=== PATIENT | male | born 1930 | race Caucasian/White ===

== ENCOUNTER 2016-06-25 09:10 | Emergency (ER) | payer MEDICARE, BC ==
[~2016-06-25] VITALS: Ht 180.3 cm; Wt 95.2 kg
[2016-06-25 09:10] VITALS: Ht 180.3 cm; Wt 95.2 kg
[~2016-06-25 09:10] MED LIST: ACET325T51 PO; ALLO100T51 PO; AMIO200T2 PO; AMLO5TAB PO; CHOL200024 PO; DOCU-132 PO; GLIP-72 PO; LOSA25TA34 PO; MAGN30OR PO; MAGN400C PO; METO50TA5 PO; POTA20TA87 PO; SIME80TA12 PO; TAMS0.4C46 PO; TORS10TA17 PO
--- OUTSIDE RECORDS SUMMARY | 2016-06-25 09:16 | XMS REPORT | Continuity of Care Document ---
Author Author [facility] Organization [facility] Address Unknown Phone Unavailable Support Name Relationship Address Phone IDALMIS FARRIS DO Caregiver [address] [place] [address] Unavailable MAGDA RIZO MD Caregiver [address] [place] [address] [place] [address] Unavailable RAGHAV ROTHMAN Next Of Kin [address] [place], [place] [id number] Insurance Providers Guarantor Bharath Rothman Address [address] [facility] [address] [place] [address] Email DENIED 04-30-16 Payer [employer] Select Plan 65 Policy Number [id number] Subscriber's Name AlexeiBharath Sanches Relationship 18 Self Group Number [id number] Payer Medicare Policy Number [id number] Subscriber's Name Alexei,Cascade L Relationship 18 Self Advance Directives Directive Response Recorded Date/Time Ordered Resuscitation Status Full Code 04/27/16 3:54pm Resuscitation Documents on File No 04/30/16 6:35am DPOA for Healthcare Only Yes 04/30/16 6:35am Living Will Yes 04/30/16 6:35am Problems Past Problems Medical Problem Onset Date Abdominal bloating Unknown Pulmonary edema Unknown Medications Current Home Medications Medication Dose Units Route Directions Days Qty Instructions Start Date Acetaminophen 325 Mg Tablet 325 Mg Oral Four Times Daily as needed for Pain 04/06/16 Allopurinol 100 Mg Tablet 3 Tab Oral Daily 09/05/12 Amiodarone Hcl 200 Mg Tablet 200 Mg Oral Bedtime 04/06/16 Amlodipine Besylate (Norvasc) 5 Mg Tablet 5 Mg Oral Twice A Day 09/05/12 Cholecalciferol (Vitamin D3) (Vitamin D) 2,000 Unit Tablet 1 Tab Oral Daily 04/27/16 Docusate Sodium (Dulcolax Stool Softener) 100 Mg Capsule 1 Cap Oral Daily as needed for Constipation 04/27/16 Glipizide 5 Mg Tablet 5 Mg Oral Twice A Day 09/05/12 Losartan Potassium 25 Mg Tablet 25 Mg Oral Daily 04/06/16 Magnesium Hydroxide/Al Hydrox (Mag-Al Liquid) 30 Ml Suspension 30 Ml Oral Every 3-4 Hours as needed for Indigestion 04/27/16 Magnesium Oxide (Magnesium) 400 Mg Capsule 1 Cap Oral Daily 30 Capsule 04/27/16 Metoprolol Tartrate 50 Mg Tablet 50 Mg Oral Daily 04/06/16 Potassium Chloride 20 Meq Tab.er.prt 1 Tab Oral Daily 30 04/27/16 Simethicone 80 Mg Tab.chew 80 Mg Oral Before Meals And At Bedtime 20 Tablet Chew 1 tablet, 4 times a day (with each meal and at bedtime). 04/06/16 Tamsulosin Hcl 0.4 Mg Cap.er.24h 0.4 Mg Oral Bedtime 09/05/12 Torsemide 10 Mg Tablet 10 Mg Oral Daily 04/06/16 Social History Social History Problem Response Recorded Date/Time Onset Date Status Reason for Hospitalization COLONOSCOPY 04/30/2016 9:22am Not Applicable Not Applicable Chewing Tobacco Status No 09/05/2012 2:45pm Not Applicable Not Applicable Hx Substance Use No 04/30/2016 6:17am Not Applicable Not Applicable Hx Alcohol Use No 04/06/2016 1:12pm Not Applicable Not Applicable Has the pt used tobacco in the last 12 months No 04/30/2016 6:17am Not Applicable Not Applicable Query Response Start Date Stop Date Smoking Status Former smoker Hospital Discharge Instructions Instructions: Care Instructions: I was in the hospital because (patient own words): COLONOSCOPY Discharge Diet: You may resume your usual diet. Discharge Activity: You may resume your usual activity. Follow Up Appointments: No specific follow-up appointment with Dr. Rizo is necessary. You can call his office for any questions or concerns ([phone]). Dr. Rizo's office will notify you of your results in about 2 weeks. Pending Lab / Results: Will be notified Patient Instructions: Do not drive, operate machinery, drink alcohol, or sign important papers for 24 hours. Expected Signs/Symptoms: You may have some gas discomfort. Notify Physician If: Contact Dr. Rizo if you have a fever over 101 degrees, severe abdominal pain, or severe rectal bleeding. During Business Hours:: *In the event of an emergency, call 911 or seek medical care at the nearest emergency room.* During office hours, call Dr. Rizo's office at [phone]. After Business Hours:: After hours, please call [facility] at [phone] and have the heel nailing machine operator page Dr. Rizo or the covering surgeon. Pain Management/Treatment: You should not have significant pain following the procedure. Wound/Incision Care: No wound care required. Condition at time of discharge: Good Plan of Care Discharge Date 04/30/16 10:43am Prescriptions See Medication Section Functional Status No functional status results. Allergies, Adverse Reactions, Alerts Allergen Type Severity Reaction Status Last Updated Penicillin Allergy Active 09/05/12 Immunizations Query Response on File Recorded Date/Time Hx Influenza Vaccination No 09/05/12 2:45pm Hx Pneumococcal Vaccination No 09/05/12 2:45pm Hx Influenza Vaccination No 09/05/12 2:45pm Influenza Vaccine Hx 12/3104/06/16 1:12pm Vital Signs Acute Vital Signs Vital Response Date/Time Temperature (Fahrenheit) 96.8 deg F (96.8 - 99.1) 04/30/2016 8:57am Temperature (Calculated Celsius) 36.49425 degrees C (36.0 - 37.3) 04/30/2016 8:57am Temperature Source Temporal 04/30/2016 8:57am Pulse Rate (adult) 46 bpm (60 - 100) 04/30/2016 10:30am Respiratory Rate 19 breaths/min (10 - 20) 04/30/2016 10:30am O2 Sat by Pulse Oximetry 98 % (90 - 100) 04/30/2016 10:30am Oxygen Delivery Method Nasal Cannula 04/30/2016 10:30am Oxygen Flow Rate 3.00 L/min 04/30/2016 10:30am Blood Pressure 142/60 mm Hg 04/30/2016 10:30am Blood Pressure Source Automatic Cuff 04/30/2016 10:30am Height (Feet) 5 feet 04/30/2016 5:58am Height (Inches) 11.00 inches 04/30/2016 5:58am Weight (Kilograms) 100.700 kg 04/30/2016 5:58am Body Mass Index (BMI) 31.0 04/30/2016 5:58am Results Laboratory Results Test Name Result Units Flags Reference Collection Date/Time Result Date/ Time Comments White Blood Count 14.4 T/MM3 H 4.5-11.0 04/06/2016 1:13pm 04/06/2016 1: 18pm Red Blood Count 3.34 M/MM3 L 4.50-5.90 04/06/2016 1:04/06/2016 1: 18pm Hemoglobin 9.7 GM/DL L 13.5-17.5 04/06/2016 1:04/06/2016 1:18pm Hematocrit 30.1 % L 41-53 04/06/2016 1:04/06/2016 1:18pm Mean Corpuscular Volume 90.1 UM3 80-100 04/06/2016 1:04/06/2016 1: 18pm Mean Corpuscular Hemoglobin 29.0 UUG 26-34 04/06/2016 1:pm 2016 1:18pm Mean Corpuscular Hemoglobin Concent 32.2 GM/DL 31-37 04/06/2016 1:04/06/2016 1:18pm RDW Standard Deviation 46.4 FL 36.9-50.2 04/06/2016 1:04/06/2016 1 :18pm Platelet Count 212 T/MM3 130-400 04/06/2016 1:04/06/2016 1:18pm Mean Platelet Volume 10.8 UM3 9.4-12.4 04/06/2016 1:04/06/2016 1: 18pm Neutrophils (%) (Auto) 84.9 % H 33-66 04/06/2016 1:04/06/2016 1: 18pm Lymphocytes (%) (Auto) 6.8 % L 23-45 04/06/2016 1:04/06/2016 1: 18pm Monocytes (%) (Auto) 7.2 % 0-9.0 04/06/2016 1:04/06/2016 1:18pm Eosinophils (%) (Auto) 0.6 % 0-4 04/06/2016 1:04/06/2016 1:18pm Basophils (%) (Auto) 0.2 % 0-2 04/06/2016 1:04/06/2016 1:18pm Immature Granulocyte % (Auto) 0.3 % 0.0-0.5 04/06/2016 1:2016 1:18pm Absolute Neutrophils (auto) 12.2 T/MM3 H 1.8-7.7 04/06/2016 1:04/06 1:18pm Absolute Lymphocytes (auto) 1.0 T/MM3 1-4.8 04/06/2016 1:2016 1:18pm Absolute Monocytes (auto) 1.0 T/MM3 H 0-0.8 04/06/2016 1:2016 1:18pm Absolute Eosinophils (auto) 0.1 T/MM3 0-0.5 04/06/2016 1:2016 1:18pm Absolute Basophils (auto) 0.0 T/MM3 0-0.2 04/06/2016 1:04/06/2016 1:18pm Absolute Immature Granulocyte (auto 0.04 T/MM3 H 0.00-0.03 04/06/2016 1: 04/06/2016 1:18pm Icterus Index < 2 0-7 04/06/2016 1:04/06/2016 1:37pm Chemistry Specimen Hemolysis < 15 0-25 04/06/2016 1:04/06/2016 1 :37pm 0-25: Specimen Exhibited No Hemolysis. Turbidity < 20 0-20 04/06/2016 1:04/06/2016 1:37pm Sodium Level 143 MEQ/L 134-144 04/06/2016 1:04/06/2016 1:37pm Potassium Level 4.2 MEQ/L 3.6-5 04/06/2016 1:04/06/2016 1:37pm Chloride Level 109 MEQ/L H 98-107 04/06/2016 1:04/06/2016 1:37pm Carbon Dioxide Level 24 MEQ/L 22-30 04/06/2016 1:04/06/2016 1: 37pm Anion Gap 10 MEQ/L 5-15 04/06/2016 1:04/06/2016 1:37pm Blood Urea Nitrogen 30.0 MG/DL H 9-20 04/06/2016 1:04/06/2016 1: 37pm Creatinine 1.7 MG/DL H 0.8-1.5 04/06/2016 1:13pm 04/06/2016 1:37pm BUN/Creatinine Ratio 18 RATIO 6-26 04/06/2016 1:13pm 04/06/2016 1:37pm Glomerular Filtration Rate Calc 39 04/06/2016 1:13pm 04/06/2016 1: 37pm Glucose Level 168 MG/DL H 75-110 04/06/2016 1:1304/06/2016 1:37pm Calculated Osmolality 285 MOSM/KG H 261-280 04/06/2016 1:132016 1:37pm Calcium Level 9.1 MG/DL 8.4-10.2 04/06/2016 1:13pm 04/06/2016 1:37pm Total Bilirubin 1.10 MG/DL 0.20-1.30 04/06/2016 1:13pm 04/06/2016 1: 37pm Alkaline Phosphatase 83 U/L 38-126 04/06/2016 1:1304/06/2016 1:37pm Total Protein 6.5 G/DL 6.3-8.2 04/06/2016 1:13pm 04/06/2016 1:37pm Albumin 3.8 G/DL 3.5-5.0 04/06/2016 1:13pm 04/06/2016 1:37pm Globulin 2.7 G/DL 2.4-3.6 04/06/2016 1:13pm 04/06/2016 1:37pm Albumin/Globulin Ratio 1.4 RATIO 1.1-2.2 04/06/2016 1:04/06/2016 1 :37pm Aspartate Amino Transf (AST/SGOT) 19 U/L 17-59 04/06/2016 1:13pm 2016 1:37pm Alanine Aminotransferase (ALT/SGPT) 34 U/L 21-72 04/06/2016 1:13pm 1:37pm ZP-Rru-A-Type Natriuretic Peptide 2670 PG/ML H 0-175 04/06/2016 1:12pm 04/06/2016 2:48pm Rule in cut points: <50 years old=450; 50-75 years old=900; >75 years old=1800; When utilizing ProBNP rule-in cut points, adjustment for impaired renal function is typically not required. Lipase 63 U/L 23-300 04/06/2016 1:13pm 04/06/2016 2:07pm Urine Collection Type CLEANCATCH-MIDSTREAM 04/06/2016 1:17pm 2016 1:47pm Urine Color YELLOW YELLOW 04/06/2016 1:17pm 04/06/2016 1:47pm Urine Turbidity CLEAR CLEAR 04/06/2016 1:17pm 04/06/2016 1:47pm Urine Specific [place] 1.010 L 1.015-1.025 04/06/2016 1:17pm 2016 1:47pm Urine pH 5.5 5.0-8.0 04/06/2016 1:17pm 04/06/2016 1:47pm Urine Leukocyte Esterase NEGATIVE NEGATIVE 04/06/2016 1:17pm 2016 1:47pm Urine Nitrite NEGATIVE NEGATIVE 04/06/2016 1:17pm 04/06/2016 1:47pm Urine Protein NEGATIVE NEGATIVE 04/06/2016 1:17pm 04/06/2016 1:47pm Urine Glucose (UA) NEGATIVE NEGATIVE 04/06/2016 1:17pm 04/06/2016 1: 47pm Urine Ketones NEGATIVE NEGATIVE 04/06/2016 1:17pm 04/06/2016 1:47pm Urine Urobilinogen 0.2 EU/DL NORMAL 04/06/2016 1:17pm 04/06/2016 1: 47pm Urine Bilirubin NEGATIVE NEGATIVE 04/06/2016 1:17pm 04/06/2016 1: 47pm Urine Blood NEGATIVE NEGATIVE 04/06/2016 1:17pm 04/06/2016 1:47pm Urinalysis Comment MICROSCOPIC NOT IND. 04/06/2016 1:17pm 2016 1:47pm Glucometer 138 mg/dL H 75-110 04/30/2016 5:54am 04/30/2016 5:57am Procedures Procedure Status Date Provider(s) Breathing capacity test Completed 03/15/16 Pulm funct tst plethysmograp Completed 03/15/16 Co/membane diffuse capacity Completed 03/15/16 Chest x-ray 2vw frontal&latl Completed 04/06/16 Ct abd & pelv w/contrast Completed 04/06/16 Comprehen metabolic panel Completed 04/06/16 Urinalysis auto w/o scope Completed 04/06/16 Assay of lipase Completed 04/06/16 Assay of natriuretic peptide Completed 04/06/16 Complete cbc w/auto diff wbc Completed 04/06/16 Ther/proph/diag inj iv push Completed 04/06/16 Emergency dept visit Completed 04/06/16"INJECTION, FUROSEMIDE, UP TO 20 MG" Completed 04/06/16"INFUSION, NORMAL SALINE SOLUTION , 250 CC" Completed 04/06/16"LOW OSMOLAR CONTRAST MATERIAL, 300-399 MG/ML IODINE C Completed "LOW OSMOLAR CONTRAST MATERIAL, 300-399 MG/ML IODINE C Completed 003"LOW OSMOLAR CONTRAST MATERIAL, 300-399 MG/ML IODINE C Completed "LOW OSMOLAR CONTRAST MATERIAL, 300-399 MG/ML IODINE C Completed Colonoscopy with polypectomy and biopsy Completed 04/30/16 MAGDA RIZO MD Encounters Encounter Location Arrival/Admit Date Discharge/Depart Date Attending Provider Departed [facility] 04/30/16 5:41am 04/30/16 10 :43am MAGDA RIZO MD Departed Emergency Room [facility] 04/06/16 12:28pm 04/06/16 4: 50pm ROSEANNA CANALES MD Registered Clinic [facility] 03/15/16 8:49am IDALMIS FARRIS DO
--- OUTSIDE RECORDS SUMMARY | 2016-06-25 09:16 | XMS REPORT | Referral Summary ---
Author Author [facility] Organization [facility] Address Unknown Phone Unavailable Care Team Providers Care Securities Settlement Processor Name Role Phone Bryant Zhang Primary Care Physician [phone] Encounter EDER [id number] Date(s): 02/18/16 - 02/19/16 [facility] [address] [place] [address] Discharge Disposition: 01-Home or Self Care Attending Physician: Britton Ott MD Admitting Physician: Britton Ott MD Vital Signs Most recent to 1 oldest [Reference Range]: Temperature Oral 36.6 degC [35.8-37.3 degC] (02/19/16 8:38 AM) Peripheral Pulse 54 bpm Rate [60-100 bpm] *LOW* (02/19/16 8:45 AM) Heart Rate Monitored 53 bpm [60-100 bpm] *LOW* (02/19/16 8:38 AM) Respiratory Rate 16 br/min [14-20 br/min] (02/19/16 4:40 AM) Blood Pressure 155/63 mmHg [90-140/60-90 mmHg] *HI* (02/19/16 8:38 AM) Mean Arterial 81 mmHg Pressure, Cuff (02/18/16 6:30 PM) SpO2 94 % (02/19/16 8:38 AM) Remote Telemetry Ongoing (02/19/16 9:01 AM) Problem List Condition Effective Dates Status Health Status Informant Cardiac Active disorder(Confirmed)1 Ineffective airway Active clearance(Confirmed) 2 Obesity(Confirmed) Active patient Tobacco Active patient user(Confirmed) 1Problem added automatically by system based on initiation of Cardiac Output/ Ineffective Cardiac Perfusion Plan of Care 2Problem added automatically by system based on initiation of Ineffective Airway Clearance Plan of Care Allergies, Adverse Reactions, Alerts Substance Reaction Severity Status penicillin Urticaria (hives) Active Medications allopurinol 100 mg oral tablet 200 mg 2 tabs, Oral, Daily, 0 Refill(s) Start Date: 02/18/16 Status: Ordered amiodarone 200 mg oral tablet 200 mg 1 tabs, Oral, qPM, 0 Refill(s) Start Date: 02/18/16 Status: Ordered amLODIPine 5 mg oral tablet 5 mg 1 tabs, Oral, BID, 0 Refill(s) Start Date: 02/18/16 Status: Ordered cholecalciferol 2,000 Intl_Units, Oral, Daily, 0 Refill(s) Start Date: 02/18/16 Status: Ordered glipiZIDE 5 mg oral tablet 5 mg 1 tabs, Oral, BID, 0 Refill(s) Start Date: 02/18/16 Status: Ordered losartan 25 mg oral tablet 25 mg 1 tabs, Oral, Daily, 0 Refill(s) Start Date: 02/18/16 Status: Ordered magnesium oxide 400 mg, Oral, qPM, 0 Refill(s) Start Date: 02/18/16 Status: Ordered Metoprolol Tartrate 50 mg oral tablet 50 mg 1 tabs, Oral, BID, 0 Refill(s) Start Date: 02/18/16 Status: Ordered potassium chloride 20 mEq oral tablet, extended release 20 mEq 1 tabs, Oral, Daily, # 30 tabs, 0 Refill(s), Pharmacy: [facility], 1 tabs Oral Daily Start Date: 02/19/16 Status: Ordered torsemide 10 mg oral tablet 5 mg 0.5 tabs, Oral, Daily, 0 Refill(s) Start Date: 02/18/16 Status: Ordered Results Hematology Most recent to 1 oldest [Reference Range]: WBC [4.8-10.8 9.8 10*3/uL 10*3/uL] (02/19/16 5:49 AM) RBC [4.60-6.20] 3.53 *LOW* (02/19/16 5:49 AM) Hgb [14.0-18.0 10.4 gm/dL gm/dL] *LOW* (02/19/16 5:49 AM) Hct [42.0-52.0 %] 31.3 % *LOW* (02/19/16 5:49 AM) MCV [82.0-99.0 fL] 88.7 fL (02/19/16 5:49 AM) MCH [27.0-32.0 pg] 29.5 pg (02/19/16 5:49 AM) MCHC [32.0-36.0 33.2 gm/dL gm/dL] (02/19/16 5:49 AM) RDW [11.5-14.5 %] 14.8 % *HI* (02/19/16 5:49 AM) Platelet [150-400 168 10*3/uL 10*3/uL] (02/19/16 5:49 AM) MPV [9.4-12.3 fL] 11.1 fL (02/19/16 5:49 AM) Neutrophils [51-75 81 % %] *HI* (02/18/16 3:03 PM) Lymphocytes [20-46 10 % %] *LOW* (02/18/16 3:03 PM) Monocytes [4-11 %] 9 % (02/18/16 3:03 PM) Eosinophils [0-4 %] 1 % (02/18/16 3:03 PM) Basophils [0-2 %] 0 % (02/18/16 3:03 PM) Neutro Absolute 11.18 10*3 [1.90-7.00 10*3] *HI* (02/18/16 3:03 PM) Lymph Absolute 1.38 10*3 [0.80-3.30 10*3] (02/18/16 3:03 PM) [place] Absolute 1.24 10*3 [0.30-1.00 10*3] *HI* (02/18/16 3:03 PM) Eos Absolute 0.14 10*3 [0.00-0.50 10*3] (02/18/16 3:03 PM) Baso Absolute 0.05 10*3 [0.00-0.20 10*3] (02/18/16 3:03 PM) Toxic Gran Occasional *ABN* (02/18/16 3:03 PM) Nucleated RBC 0.0 /100 WBC Automated [0 /100 (02/18/16 3:03 PM) WBC] Differential Reviewed (02/18/16 3:03 PM) Chemistry Most recent to 1 oldest [Reference Range]: Sodium Lvl [136-144 139 mEq/L mEq/L] (02/19/16 5:49 AM) Potassium Lvl 3.1 mEq/L [3.6-5.1 mEq/L] *LOW* (02/19/16 5:49 AM) Chloride [99-109 106 mEq/L mEq/L] (02/19/16 5:49 AM) CO2 [22-32 mEq/L] 26 mEq/L (02/19/16 5:49 AM) AGAP [3-20] 7 (02/19/16 5:49 AM) BUN [4-20 mg/dL] 23 mg/dL *HI* (02/19/16 5:49 AM) Glucose Lvl [70-100 114 mg/dL mg/dL] *HI* (02/19/16 5:49 AM) Creatinine Lvl 1.55 mg/dL [0.64-1.27 mg/dL] *HI* (02/19/16 5:49 AM) eGFR [>60] 43 1 *ABN* (02/19/16 5:49 AM) Calcium Lvl 8.6 mg/dL [8.6-10.0 mg/dL] (02/19/16 5:49 AM) Albumin Lvl [3.5-4.8 3.0 gm/dL gm/dL] *LOW* (02/19/16 5:49 AM) Total Protein 5.5 gm/dL [6.1-7.9 gm/dL] *LOW* (02/19/16 5:49 AM) Globulin [1.9-4.3 2.5 gm/dL gm/dL] (02/19/16 5:49 AM) ALT [17-63 U/L] 16 U/L *LOW* (02/19/16 5:49 AM) AST [15-41 U/L] 16 U/L (02/19/16 5:49 AM) Alk Phos [26-104 66 U/L U/L] (02/19/16 5:49 AM) Bili Total [0.2-1.2 0.9 mg/dL 2 mg/dL] (02/19/16 5:49 AM) BNP [0-99 pg/mL] 449 pg/mL *HI* (02/19/16 5:49 AM) Troponin [<0.06 <0.05 ng/mL ng/mL] (02/19/16 5:49 AM) Blood Glucose, 115 mg/dL Capillary [70-100 *HI* mg/dL] (02/19/16 5:20 AM) 1Result Comment: Multiply eGFR results by 1.21 for race. 2Result Comment: Naproxen, specifically the metabolite O-desmethylnaproxen, may cause spurious elevation in Total Bilirubin levels. Immunizations No data available for this section Procedures No data available for this section Social History Social History Type Response Smoking Status Former smoker Assessment and Plan No data available for this section
--- OUTSIDE RECORDS SUMMARY | 2016-06-25 09:16 | XMS REPORT | Continuity of Care Document ---
Author Author [facility] Organization [facility] Address Unknown Phone Unavailable Allergies Active Description Code Type Severity Reaction Onset Reported/Identified Relationship to Patient Clinical Status Yes No Known Food Allergies Food Allergy N/A N/A 07/06/2009 Yes Penicillins Drug Allergy N/A Urticaria (hives) 07/06/2009 Medications Problems Date Dx Coded Attending Type Code Diagnosis Diagnosed By 05/13/2013 Eliza Lewis MD) Final 585.3 CKD-STAGE III 05/13/2013 Eliza Lewis MD) Admitting 585.3 CKD-STAGE III Procedures Results Test Result Range CBC - 01/07/12 07:57 MEAN CELL HGB 30.0 pg 27.0-33.0 MEAN CELL HGB CONCENTRATION 34.0 g/dl 32.0-36.0 MEAN CELL VOLUME 88.3 fl 80.0-100.0 RED BLOOD CELL 4.38 m/cumm 4.00-6.00 RED CELL DISTRIBUTION WIDTH 14.6 % 11.0- 15.6 WHITE BLOOD CELL 9.9 k/cumm 5.0-10.0 HEMOGLOBIN 13.1 gm/dL 14.0-18.0 HEMATOCRIT 38.6 % 40.0-54.0 PLATELET COUNT 245 k/cumm 150-450 METABOLIC PANEL, BASIC - 01/07/12 07:57 POTASSIUM 3.9 mmol/L 3.5-5.3 EST GFR (MDRD) 48 mL/min > 59 ANION GAP 9 mmol/L 5-15 EST CrCl (CG) 42 mL/min > 59 GLUCOSE 167 mg/dL 70-99 CALCIUM 9.1 mg/dL 8.5-10.1 BLOOD UREA NITROGEN 21 mg/dL 7-20 CREATININE 1.5 mg/dL 0.8-1.3 SODIUM 142 mmol/L 135-148 CHLORIDE 110 mmol/L 98-110 CARBON DIOXIDE 23 mmol/L 21-32 GLUCOSE (POC) - 01/07/12 08:37 GLUCOSE (POC) 206 mg/dL 70-99 URINALYSIS, ROUTINE - 01/07/12 08:50 UA LEUKOCYTE ESTERASE DIPSTICK NEGATIVE NEGATIVE UA NITRITE DIPSTICK NEGATIVE NEGATIVE UA PROTEIN DIPSTICK NEGATIVE NEGATIVE UA GLUCOSE DIPSTICK NEGATIVE NEGATIVE UA KETONE DIPSTICK NEGATIVE NEGATIVE UA UROBILINOGEN DIPSTICK NORMAL NORMAL UA BILIRUBIN DIPSTICK NEGATIVE NEGATIVE UA BLOOD DIPSTICK NEGATIVE NEGATIVE UA VOLUME FOR EXAM 12.0 mL (12mL STD) UA SPECIFIC GRAVITY 1.019 1.015-1.025 UR PH 5.0 5.0-7.0 GLUCOSE (POC) - 01/07/12 12:13 GLUCOSE (POC) 104 mg/dL PROTHROMBIN TIME WITH INR - 01/07/12 12:29 INTERNATIONAL NORMAL RATIO 1.2 0.9-1.1 PROTHROMBIN TIME 12.4 sec 9.3-12.2 GLUCOSE (POC) - 01/07/12 14:29 GLUCOSE (POC) 197 mg/dL MRSA SURVEILLANCE SCREEN - 01/07/12 16:35 Uncategorized GLUCOSE (POC) - 01/07/12 20:16 GLUCOSE (POC) 155 mg/dL CBC - 01/08/12 04:10 MEAN CELL HGB 30.5 pg 27.0-33.0 MEAN CELL HGB CONCENTRATION 34.5 g/dl 32.0-36.0 MEAN CELL VOLUME 88.4 fl 80.0-100.0 RED BLOOD CELL 3.26 m/cumm 4.00-6.00 RED CELL DISTRIBUTION WIDTH 14.1 % 11.0- 15.6 WHITE BLOOD CELL 9.9 k/cumm 5.0-10.0 HEMOGLOBIN 9.9 gm/dL 14.0-18.0 HEMATOCRIT 28.8 % 40.0-54.0 PLATELET COUNT 175 k/cumm 150-450 METABOLIC PANEL, COMPREHN - 01/08/12 04:10 POTASSIUM 3.8 mmol/L 3.5-5.3 EST GFR (MDRD) 45 mL/min > 59 ANION GAP 9 mmol/L 5-15 EST CrCl (CG) 39 mL/min > 59 GLUCOSE 118 mg/dL CALCIUM 8.0 mg/dL 8.5-10.1 BLOOD UREA NITROGEN 22 mg/dL 7-20 CREATININE 1.6 mg/dL 0.8-1.3 SODIUM 143 mmol/L 135-148 CHLORIDE 110 mmol/L 98-110 AST/SGOT 30 Units/L 10-37 ALT/SGPT 17 Units/L < 66 CARBON DIOXIDE 24 mmol/L 21-32 TOTAL PROTEIN 5.2 gm/dL 6.4-8.2 ALBUMIN 2.8 gm/dL 3.4-5.0 BILI TOTAL 0.4 mg/dL 0.0-1.0 ALKALINE PHOSPHATASE TOTAL 64 Units/L 50- 136 GLUCOSE (POC) - 01/08/12 06:02 GLUCOSE (POC) 142 mg/dL 70-99 GLUCOSE (POC) - 01/08/12 11:06 GLUCOSE (POC) 151 mg/dL 70-99 GLUCOSE (POC) - 01/08/12 14:23 GLUCOSE (POC) 136 mg/dL 70-99 GLUCOSE (POC) - 01/08/12 20:18 GLUCOSE (POC) 127 mg/dL 70-99 METABOLIC PANEL, BASIC - 01/09/12 04:45 POTASSIUM 3.7 mmol/L 3.5-5.3 EST GFR (MDRD) 45 mL/min > 59 ANION GAP 8 mmol/L 5-15 EST CrCl (CG) 39 mL/min > 59 GLUCOSE 136 mg/dL 70-99 CALCIUM 8.2 mg/dL 8.5-10.1 BLOOD UREA NITROGEN 20 mg/dL 7-20 CREATININE 1.6 mg/dL 0.8-1.3 SODIUM 144 mmol/L 135-148 CHLORIDE 111 mmol/L 98-110 CARBON DIOXIDE 25 mmol/L 21-32 CBC - 01/09/12 04:45 MEAN CELL HGB 30.5 pg 27.0-33.0 MEAN CELL HGB CONCENTRATION 34.3 g/dl 32.0-36.0 MEAN CELL VOLUME 88.8 fl 80.0-100.0 RED BLOOD CELL 3.06 m/cumm 4.00-6.00 RED CELL DISTRIBUTION WIDTH 14.3 % 11.0- 15.6 WHITE BLOOD CELL 9.1 k/cumm 5.0-10.0 HEMOGLOBIN 9.3 gm/dL 14.0-18.0 HEMATOCRIT 27.2 % 40.0-54.0 PLATELET COUNT 175 k/cumm 150-450 GLUCOSE (POC) - 01/09/12 05:51 GLUCOSE (POC) 133 mg/dL 70-99 GLUCOSE (POC) - 01/09/12 10:12 GLUCOSE (POC) 171 mg/dL 70-99 GLUCOSE (POC) - 01/09/12 14:19 GLUCOSE (POC) 205 mg/dL 70-99 Encounters ACCT No. Visit Date/Time Discharge Status Pt. Type Provider Facility Loc./Unit Complaint [id number] 01/07/2012 07:59:00 2011 16:43:00 [id number]
[2016-06-25] MEDS ORDERED: POTA99TA21 PO (09:41)
[2016-06-25] MEDS ORDERED: MAGN100T PO (09:41)
--- NOTE | 2016-06-25 09:45 | ERPDOC ---
Departure Disposition Decision Date: Jun 25, 2016 Disposition Decision Time: 12:18 Disposition: 01 DISCHARGED HOME, SELF-CARE Impression Impression Impression: Primary Impression: Rotavirus enteritis Severity: Moderate Condition: Stable Seen By: Physician only Referrals: IDALMIS FARRIS DO (Family) Patient Instructions: Acute Diarrhea (ED) Problems/Meds/Labs Reviewed?: Yes Medications reviewed and manag: Yes Additional Instructions: Recommend Imodium [id number] as directed on the box, plenty of fluids. Follow-up with primary medical physician if not improved by midweek Wash hands frequently with soap and water, and kitchen and bathroom countertops with Clorox wipes Follow up care ordered?: Yes Mental Status: Alert, Oriented HPI - Abdominal Pain General Chief Complaint: Nausea,Vomiting,Diarrhea Stated Complaint: SEVERE DIARRHEA Time Seen by Provider: 09:45 HPI - Abdominal Pain Allergies: Coded Allergies: Penicillins (Verified Allergy, 09/05/12) Past History Past Medical History Metabolic: cancer Cardiac: other Surgical History General: gallbladder Cardiac: valve replacement Reproductive/: other Vaccines Hx Influenza Vaccination: No Hx Pneumococcal Vaccination: No Social History Does patient use chewing tobac: No Second Hand Exposure: No Substance Use Type: does not use Substance last used: unknown Alcohol Intake: none Last Drink: prior to arrival, unknown Physical Exam General Vitals and Pain First Documented Vital Signs Date Time Temp Pulse Resp B/P Pulse Ox O2 Delivery O2 Flow Rate FiO2 06/25/16 09:10 98.4 66 18 164/73 95 Room Air Weight: Kilograms: 95.200 Height (feet): 5 Height (inches): 11.00 Triage Pain Scale: Progress Results/Orders Orders Procedure Category Date Status Time Orthostatic Bp/Pulse EDM 06/25/16 Transmitted 09:49 Iv Lock (Ed Only) EDM 06/25/16 Transmitted 09:49 Cbc W/Auto LAB 06/25/16 Complete Diff-Reflex Manual 09:49 Cmp - Comprehensive LAB 06/25/16 Complete Metabolic 09:49 Lipase LAB 06/25/16 Complete 09:49 Ua, Dip Wreflex LAB 06/25/16 Complete [employer] 09:49 Normal Saline (Normal PHA 06/25/16 Complete Saline Iv) 10:00 Gi Panel, Pcr, Stool LAB 06/25/16 Complete 10:19 Lab Results Laboratory Tests Test 06/25/16 10:02 06/25/16 10:19 White Blood Count 12.1T/MM3 Red Blood Count 4.54M/MM3 Hemoglobin 12.7GM/DL Hematocrit 38.5% Mean Corpuscular Volume 84.8UM3 Mean Corpuscular Hemoglobin 28.0UUG Mean Corpuscular Hemoglobin Concent 33.0GM/DL RDW Standard Deviation 48.8FL Platelet Count 181T/MM3 Mean Platelet Volume 10.4UM3 Immature Granulocyte % (Auto) % Neutrophils (%) (Auto) % Lymphocytes (%) (Auto) % Monocytes (%) (Auto) % Eosinophils (%) (Auto) % Basophils (%) (Auto) % Absolute Immature Granulocyte (auto T/MM3 Absolute Neutrophils (auto) T/MM3 Absolute Lymphocytes (auto) T/MM3 Absolute Monocytes (auto) T/MM3 Absolute Eosinophils (auto) T/MM3 Absolute Basophils (auto) T/MM3 Neutrophils % (Manual) 87.0% Lymphocytes % (Manual) 2.0% Monocytes % (Manual) 10.0% Eosinophils % (Manual) 1.0% Absolute Neutrophils (Manual) 10.5T/MM3 Lymphocytes # (Manual) 0.2T/MM3 Monocytes # (Manual) 1.2T/MM3 Eosinophils # (Manual) 0.1T/MM3 Poikilocytosis 1+ Tear Drop Cells 1+ Helmet Cells 1+ Red Cell Morphology Comment Abnormal Urine Collection Type Voided-not cc-midstr Urine Color Yellow Urine Turbidity Clear Urine pH 5.5 Urine Specific [place] 1.015 Urine Protein Trace Urine Glucose (UA) Negative Urine Ketones Negative Urine Blood Trace-intact Urine Nitrite Negative Urine Bilirubin Negative Urine Urobilinogen 0.2EU/DL Urine Leukocyte Esterase Negative Urinalysis Comment Microscopic not ind. Turbidity < 20 Sodium Level 148MEQ/L Potassium Level 3.8MEQ/L Chloride Level 109MEQ/L Carbon Dioxide Level 23MEQ/L Anion Gap 16MEQ/L Blood Urea Nitrogen 26.0MG/DL Creatinine 1.6MG/DL Glomerular Filtration Rate Calc 41 BUN/Creatinine Ratio 16RATIO Glucose Level 137MG/DL Calculated Osmolality 291MOSM/KG Calcium Level 9.5MG/DL Total Bilirubin 0.70MG/DL Icterus Index < 2 Aspartate Amino Transf (AST/SGOT) 25U/L Alanine Aminotransferase (ALT/SGPT) 35U/L Alkaline Phosphatase 122U/L Total Protein 7.4G/DL Albumin 4.1G/DL Globulin 3.3G/DL Albumin/Globulin Ratio 1.2RATIO Lipase 99U/L Chemistry Specimen Hemolysis < 15 Stool Cyclospora species Detection Negative Stool Rotavirus A PCR Detected Stool Adenovirus (PCR) Negative Stool Astrovirus (PCR) Negative Stool Campylobacter PCR Negative Stool C. difficile Toxin (PCR) Negative Stool Cryptosporidium PCR Negative Stool E. coli Shiga Toxins Negative Stool E coli O157 PCR N/a Stool Enterotoxigenic Ecoli PCR Negative Stool Enteropathogenic E. coli (PCR Negative Stool Enteroaggregative E. coli PCR Negative Stool Entamoeba (PCR) Negative Stool Giardia Lamblia PCR Negative Stool Salmonella PCR Negative Stool Sapovirus (PCR) Negative Stool Plesiomonas shigelloides PCR Negative Stool Shigella/EIEC (PCR) Negative Stool Yersinia enterocolitica (PCR) Negative Stool Vibrio (PCR) Negative Stool Vibrio cholera (PCR) Negative Stool Norovirus GI/GII PCR Negative Medications Current ED Medications Sodium Chloride (Normal Saline IV) 1,000 ml @ 999 mls/hr Q1H1M ONCE IV Last administered on 06/25/16t 10:39; Start 06/25/16 at 10:00; Stop 06/25/16 at 11:00 ; Status DC CHERRY CUEVA MD Jun 25, 2016 09:45
[2016-06-25] MEDS ORDERED: NORMAL SALINE 1,000 ML IV ONE (10:00)
--- NOTE | 2016-06-25 10:00 | NUR ---
OUTPUT VOIDED 1OO CC URINE. EXPELLED YELLOW SOL LIQUID STOOL-100 CC. VERY SMELLY. SAMPLE TO LAB
[2016-06-25 10:15] LABS: BLOOD, URINE TRACE-INTACT (NEGATIVE); COLOR,URINE YELLOW (YELLOW); LEUKOCYTE ESTERASE ,URINE NEGATIVE (NEGATIVE); NITRITE,URINE NEGATIVE (NEGATIVE); UROBILINOGEN,URINE 0.2 EU/DL (NORMAL)
[2016-06-25 10:16] LABS: HCT - HEMATOCRIT 38.5 % (41-53); HGB - HEMOGLOBIN 12.7 GM/DL (13.5-17.5); MEAN CORPUSCULAR VOLUME 84.8 UM3 (80-100); MEAN PLATELET VOLUME 10.4 UM3 (9.4-12.4); RED BLOOD COUNT 4.54 M/MM3 (4.50-5.90); WBC - WHITE BLOOD COUNT 12.1 T/MM3 (4.5-11.0)
[2016-06-25 10:30] LABS: ALBUMIN 4.1 G/DL (3.5-5.0); ALBUMIN/GLOBULIN RATIO 1.2 RATIO (1.1-2.2); ALKALINE PHOSPHATASE 122 U/L (38-126); ALT (SGPT) 35 U/L (21-72); ANION GAP 16 MEQ/L (5-15); AST (SGOT) 25 U/L (17-59); BUN/CREATININE RATIO 16 RATIO (6-26); CALCIUM 9.5 MG/DL (8.4-10.2); CHLORIDE 109 MEQ/L (98-107); CO2 - CARBON DIOXIDE 23 MEQ/L (22-30); CREATININE 1.6 MG/DL (0.8-1.5); GLOMERULAR FILTRATION RATE 41; GLUCOSE 137 MG/DL (75-110); LIPASE 99 U/L (23-300); POTASSIUM 3.8 MEQ/L (3.6-5); SODIUM 148 MEQ/L (134-144); TOTAL PROTEIN 7.4 G/DL (6.3-8.2)
[2016-06-25 10:45] LABS: EOSINOPHILS # (MANUAL) 0.1 T/MM3 (0-0.5); LYMPHOCYTES # (MANUAL) 0.2 T/MM3 (1-4.8); MONOCYTES # (MANUAL) 1.2 T/MM3 (0-0.8); NEUTROPHILS #(MANUAL)-ABSOLUTE 10.5 T/MM3 (1.8-7.7); TOTAL CELLS COUNTED 100 %
[2016-06-25 10:46] LABS: POIKILOCYTOSIS 1+
[2016-06-25 10:47] LABS: HELMET CELLS 1+; TEAR DROP CELLS 1+
--- NOTE | 2016-06-25 11:02 | NUR ---
REPORT REC'D FROM LYNDON LEÓN. THIS RN WILL RESUME CARE.
--- OUTSIDE RECORDS SUMMARY | 2016-06-25 11:10 | XMS REPORT | Continuity of Care Document ---
Author Author [facility] Organization [facility] Address Unknown Phone Unavailable Allergies Active Description [...] Status Pt. Type Provider Facility Loc./Unit Complaint [id number] 01/07/2012 07:59:00 2011 16:43:00 [id number]
--- NOTE | 2016-06-25 11:25 | NUR ---
STATUS PT PROVIDED WITH GLASS OF WATER PER REQUEST AFTER APPROVAL BY DR. CUEVA. DENIES FURTHER NEEDS AT THIS TIME. REPORTS FEELS "BETTER," DENIES PAIN. CALL LIGHT WITHIN REACH. VSS, WILL CONTINUE TO MONITOR.
[2016-06-25 12:41] VITALS: BP 146/67; PULSE 57; RESP 18; TEMP 98.4; O2SAT 99
--- NOTE | 2016-06-25 12:41 | NUR ---
DISCHARGE WRITTEN INSTRUCTIONS REVIEWED AND SENT WITH PT. PT VERBALIZES UNDERSTANDING OF DI, DENIES QUESTIONS. REPORTS FEELING BETTER AFTER FLUID ADM. PT AMBULATES OUT OF ER WITH STEADY GAIT AT THIS TIME.
== END 2016-06-25 12:41 | disposition home or self-care (01) ==
LOC: ED 09:10
DX: A08.0 Rotaviral enteritis (principal)
CPT/HCPCS: 80053; 81003; 83690; 85025; 87507; 96360; 99284; J7030